=== PATIENT | male | born 1975 | race Caucasian/White ===

== ENCOUNTER 2017-03-15 08:47 | Emergency (ER) | payer BC ==
[~2017-03-15 08:47] MED LIST: BENZONATATE PO; EXFORGE HCT 5-1 EACH PO; ZITHROMAX1 G/PKT PO; ZOFRANODT PO
[2017-03-15] MEDS ORDERED: METFORMIN PO (08:56)
== END 2017-03-15 10:35 | disposition home or self-care (01) ==
LOC: SED 08:47
DX: L02.214 Cutaneous abscess of groin (principal); I10 Essential (primary) hypertension; E11.9 Type 2 diabetes mellitus without complications
CPT/HCPCS: 10060; 99283

== ENCOUNTER 2017-03-17 11:00 | Emergency (ER) | payer BC ==
[~2017-03-17 11:00] MED LIST changes: +METFORMIN PO
== END 2017-03-17 11:47 | disposition home or self-care (01) ==
LOC: SED 11:00
DX: L02.214 Cutaneous abscess of groin (principal); Z79.899 Other long term (current) drug therapy
CPT/HCPCS: 99283